=== PATIENT | male | born 1970 ===

== ENCOUNTER 2018-03-09 14:50 | Outpatient (CLI) | payer OTHER | END 2018-03-09 15:35 | disposition home or self-care (01) | LOC: NUCLEAR 14:50 | DX: C73 Malignant neoplasm of thyroid gland (principal) | CPT/HCPCS: A9528; 78018; 78020 ==

== ENCOUNTER 2022-06-10 06:10 | Day surgery (SDC) | payer OTHER ==
[~2022-06-10] VITALS: Ht 170.2 cm; Wt 53.5 kg
[~2022-06-10 06:10] MED LIST: SYNTHROID100 MCG PO
[2022-06-10] MEDS ORDERED: COLACE100 MG PO (08:16)
[2022-06-10] MEDS ORDERED: NEURONTIN300 MG PO (08:16)
[2022-06-10] MEDS ORDERED: PERCOCET 5-3251 EACH PO (08:16)
== END 2022-06-10 16:15 | disposition home or self-care (01) ==
LOC: CIR.AMB 06:10
PROVIDERS: ATTEND Surgery
DX: K62.89 Other specified diseases of anus and rectum (principal); K64.2 Third degree hemorrhoids; K62.5 Hemorrhage of anus and rectum; Z20.822 Contact with and (suspected) exposure to COVID-19; E03.9 Hypothyroidism, unspecified